=== PATIENT | female | born 2005 | race Hispanic/Latino ===

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

== ENCOUNTER 2024-07-29 21:18 | Emergency (ER) | payer OTHER ==
--- OUTSIDE RECORDS SUMMARY | 2024-07-29 21:23 | XMS REPORT | Continuity of Care Document ---
Author Name Unknown Address [address] 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 Name Role Phone RESHMA LATHAM Primary Care Physician Unav WOO Salter Attending Clinician Unavailable Latanya Russell CGC Attending Clinician Unavailable 2, Genetic Counselor Telemed Attending Clinician Unavailable MINNIE MONTERROSO Attending Clinician Unavailgriselda [facility]roso [facility] [phone] BARBARA PATTEN Attending Clinician Unavailable 1, [facility] Us Room Attending Clinician UnavailBarbara Ortez MD Attending Clinician [phone] Lab, Ang-Rmchp Attending Clinician Unavailable Woo Escobedo MD Attending Clinician Unavailable Yeison Reshma JENSEN Attending Clinician + RESHMA LATHAM Attending Clinician Unavail able Doctor Unassigned, Spangle Attending Clinician U NORMA Edwards Attending Clinician UnavailNORMA Samson Attending Clinician UnavailOSMEL Quesada Attending Clinician UnaLAINA Fields Attending Clinician Unavailab le Pob, [facility] Main Attending Clinician Unavailabl e Only, Adc Test Attending Clinician Unavailable 2, [facility] Attending Clinician Unavailable [email or web address] Attending Clinician Unavailable Marcella Woods Attending Clinician [phone] Provider, OB Admit Generic Admitting Clinician U jazzmineailable WOO ESCOBEDO Admitting Clinician Unavailable RESHMA LATHAM Admitting Clinician Unavail able Woo Escobedo MD Admitting Clinician [email or web address] Admitting Clinician Unavailable Payers Payer Name Policy Type Policy Number Effective Date Expirati on Date Source [employer] MEDICAID [id number] 2021 00:00:00 [employer] [id number] 2024 00:00:00 [facility]LY [facility] [id number] 2024 00:00:00 [place] [id number] 2024 00:00:00 2024 00:00:00 [facility] (MEDICAID [facility]) [id number] 2018 00:00:00 Problems Condition Name Condition Details Condition Category Status Onset Date Resolution Date Last Treatment Date Treating Clinician Comments Source Abnormal maternal glucose tolerance, antepartum Abnormal maternal glucose tolerance, antepartum Disease Active 4-03 00:00: 00 [facility] Cramping affecting , antepartum Cramping affecting , antepartum Disease Active 4-02 00:00: 00 [facility] Other general counseling and advice for contracept david management Other general counseling and advice for contracept david management Disease Active 2-23 00:00: 00 [facility] Pain pelvic Pain pelvic Disease Active 2-23 00:00: 00 [facility] Bacterial vaginosis Bacterial vaginosis Disease Active 4-08 00:00: 00 [facility] Missed Missed Disease Active 3-23 00:00: 00 Overview: Formattin g of this note might be different from the original. Added automatic ally from request for surgery [id number] [facility] History of miscarriag e, currently History of miscarriag e, currently Disease Active 3-23 00:00: 00 Overview: Formattin g of this note might be different from the original. Added automatic ally from request for surgery [id number] [facility] Obesity (BMI 30-39.9) Obesity (BMI 30-39.9) Disease Active 2- 00:00: 00 [facility] Obesity in Obesity in Disease Active 2- 00:00: 00 [facility] Supervisio n of high risk in first trimester Supervisio n of high risk in first trimester Disease Active 2- 00:00: 00 [facility] Obesity affecting Obesity affecting Disease Active 2- 00:00: 00 [facility] Allergies, Adverse Reactions, Alerts Allergy Name Allergy Type Status Severity Reaction(s) Onset Date Inactive Date Treating Clinician Comments Source NO KNOWN ALLERGIE S Drug Class Active [facility] Social History Social Habit Start Date Stop Date Quantity Comments Source ASSERTION 2024-01-01 00:00:00 [facility] Sexual orientation [facility] Alcoholic beverage intake 2024-03-18 00:00:00 2024-03-18 00:00:00 Ex-drinker (finding) [facility] Alcohol intake 2024-02-19 00:00:00 2024-02-19 00:00:00 Ex-drinker (finding) [facility] History of Social function 2024-01-22 00:00:00 2024-01-22 00:00:00 [facility] Exposure to SARS-CoV-2 (event) 2022-12-04 00:00:00 2022-12-14 13:54:00 Not sure [facility] Tobacco use and exposure 2022-12-14 00:00:00 2022-12-14 00:00:00 Smokeless tobacco non-user [facility] Sex assigned at 2003 00:00:00 2005 00:00:00 [facility] Smoking Status Start Date Stop Date Source Tobacco smoking consumption unknown [facility] Never smoked tobacco [facility] Medications Ordered Medication Name Filled Medication Name Start Date Stop Date Current Medication? Ordering Clinician Indication Dosage Frequency Signature (SIG) Comments Components Source PNV 67-iron ps-folate no.1-dha (VITAFOL ULTRA) 29 mg iron- 1 mg-200 mg Cap 04-03 00:00: 00 10-01 05:59 :00 No 1{capsu le} Take 1 capsule by mouth in the morning for 180 days. [facility] No known medications 01-27 10:37: 52 No [facility] vit 33-iron-fol ic-dha (SELECT-OB + DHA) 29 mg iron-1 mg -250 mg combo pack 01-26 00:00: 00 Yes [id number] 1{packe t} Take 1 Packet by mouth daily. [facility] vit 33-iron-fol ic-dha (SELECT-OB + DHA) 29 mg iron-1 mg -250 mg combo pack 01-26 00:00: 00 01-21 00:00 :00 No [id number] 1{packe t} Take 1 Packet by mouth daily. [facility] metroNIDAZO LE 500 mg tablet 01-26 00:00: 00 02-03 04:59 :00 No [id number] 500mg Take 1 tablet by mouth every 12 (twelve) hours for 7 days. Do not drink alcohol while taking this medication . [facility] ibuprofen (IBU) tablet 800 mg 01-13 17:00: 56 Yes 800mg 800 mg, Oral, PRN, 1 dose, Starting on Sun01/13/22 at 1200, Until Discontinu ed, Routine, Pain (scale 4-6), [facility] Recovery [facility] acetaminoph en (TYLENOL) tablet 325 mg 01-13 17:00: 56 Yes 325mg 325 mg, Oral, PRN, 1 dose, Starting on Sun01/13/22 at 1200, Until Discontinu ed, Routine, Pain (scale 1-3), [facility] Recovery [facility] oxyCODONE-a cetaminophe n (PERCOCET) 5-325 mg per tablet 1 tablet 01-13 17:00: 56 01-13 17:23 :00 No 1{tbl} 1 tablet, Oral, PRN, 1 dose, Starting on Sun01/13/22 at 1200, Until Sun01/13/22 at 1223, Routine, Pain (scale 7-10), [facility] Recovery [facility] ferric subsulfate (MONSEL'S) solution 01-13 16:40: 00 Yes PRN, Starting on Sun01/13/22 at 1140, Until Discontinu ed, Routine, Intra-op [facility] doxycycline hyclate (Vibramycin ) capsule 200 mg 01-13 16:00: 00 01-13 15:03 :00 No 200mg 200 mg, Oral, ONCE, 1 dose, On Sun01/13/22 at 1100, TOMI
Re ason for Anti-Infec tive: Surgical Prophylaxi s
Surgi ranulfo Prophylaxi s: DESIGN ENGINEERING INTERN
Duration of therapy: within 24 hours of surgery [facility] sodium chloride 0.9 % irrigation solution 01-13 15:46: 00 Yes PRN, Starting on Sun01/13/22 at 1046, Until Discontinu ed, Intra-op [facility] lactated ringers IV infusion 1,000 mL 01-13 14:45: 00 01-13 14:54 :00 No 1000mL at 42 mL/hr, 1,000 mL, IV Infusion, ONCE, 1 dose, On Sun01/13/22 at 0945, Routine, DSU Pre-op [facility] vit no.124/iron /folic ( VITAMIN ORAL) 01-13 11:58: 50 01-13 00:00 :00 No Take by mouth. [facility] ibuprofen 600 mg tablet 01-13 00:00: 00 01-21 00:00 :00 No [id number] 600mg Take 1 tablet by mouth every 6 (six) hours as needed for Pain (scale 1-3). [facility] vit no.124/iron /folic ( VITAMIN ORAL) 01-12 11:33: 28 Yes Take by mouth. [facility] vit no.124/iron /folic ( VITAMIN ORAL) 01-11 12:10: 19 Yes Take by mouth. [facility] NuvaRing 0.12 mg-0.015 mg/24 hr vaginal Insert 1 ring vaginally once for x 3 weeks. Remove on week 4. Repeat monthly. NuvaRing 0.12 mg-0.015 mg/24 hr vaginal Insert 1 ring vaginally once for x 3 weeks. Remove on week 4. Repeat monthly. No NuvaRing 0.12 mg-0.015 mg/24 hr vaginal Insert 1 ring vaginally once for x 3 weeks. Remove on week 4. Repeat monthly. [facility] Medical Immunizations Ordered Immunization Name Filled Immunization Name Date Status Comments Source SARS-COV-2 COVID-19 VACCINE - (MODERNA) Unknown Completed [facility] Meningococcal B, OMV Unknown Completed [facility] IPV Unknown Completed [facility] TDAP Unknown Completed [facility] Pediarix (dtap/hep B/ipv) Unknown Completed [facility] DTaP, Unspecified Formulation Unknown Completed [facility] HEPATITIS A Unknown Completed [facility] Hib-HbOC Unknown Completed [facility] HIB 4 Dose Schedule Unknown Completed [facility] HPV9 Unknown Completed [facility] Meningococcal Polysaccharide (groups A, C, Y and W-135) conjugate vaccine (MCV4P) Unknown Completed [facility] MMR Unknown Completed [facility] Pneumococcal 7 Conjugate, PCV7 (Prevnar7) Unknown Completed [facility] Varicella (varivax)(chicken pox) Unknown Completed [facility] SARS-COV-2 COVID-19 VACCINE - (MODERNA) Unknown Completed [facility] Pediarix (dtap/hep B/ipv) Unknown Completed [facility] DTaP, Unspecified Formulation Unknown Completed [facility] HEPATITIS A Unknown Completed [facility] Hib-HbOC Unknown Completed [facility] HIB 4 Dose Schedule Unknown Completed [facility] HPV9 Unknown Completed [facility] Meningococcal Polysaccharide (groups A, C, Y and W-135) conjugate vaccine (MCV4P) Unknown Completed [facility] Meningococcal B, OMV Unknown Completed [facility] MMR Unknown Completed [facility] Pneumococcal 7 Conjugate, PCV7 (Prevnar7) Unknown Completed [facility] IPV Unknown Completed [facility] TDAP Unknown Completed [facility] Varicella (varivax)(chicken pox) Unknown [facility] SARS-COV-2 COVID-19 VACCINE - (MODERNA) Unknown Completed [facility] Pediarix (dtap/hep B/ipv) Unknown Completed [facility] DTaP, Unspecified Formulation Unknown Completed [facility] HEPATITIS A Unknown Completed [facility] Hib-HbOC Unknown Completed [facility] HIB 4 Dose Schedule Unknown Completed [facility] HPV9 Unknown Completed [facility] Meningococcal Polysaccharide (groups A, C, Y and W-135) conjugate vaccine (MCV4P) Unknown Completed [facility] Meningococcal B, OMV Unknown Completed [facility] MMR Unknown Completed [facility] Pneumococcal 7 Conjugate, PCV7 (Prevnar7) Unknown Completed [facility] IPV Unknown Completed [facility] TDAP Unknown Completed [facility] Varicella (varivax)(chicken pox) Unknown [facility] SARS-COV-2 COVID-19 VACCINE - (MODERNA) Unknown Completed [facility] Pediarix (dtap/hep B/ipv) Unknown Completed [facility] DTaP, Unspecified Formulation Unknown Completed [facility] HEPATITIS A Unknown Completed [facility] Hib-HbOC Unknown Completed [facility] HIB 4 Dose Schedule Unknown Completed [facility] HPV9 Unknown Completed [facility] Meningococcal Polysaccharide (groups A, C, Y and W-135) conjugate vaccine (MCV4P) Unknown Completed [facility] Meningococcal B, OMV Unknown Completed [facility] MMR Unknown Completed [facility] Pneumococcal 7 Conjugate, PCV7 (Prevnar7) Unknown Completed [facility] IPV Unknown Completed [facility] TDAP Unknown Completed [facility] Varicella (varivax)(chicken pox) Unknown [facility] SARS-COV-2 COVID-19 VACCINE - (MODERNA) Unknown Completed [facility] Pediarix (dtap/hep B/ipv) Unknown Completed [facility] DTaP, Unspecified Formulation Unknown Completed [facility]ITIS A [facility] HIB 4 Dose Schedule Unknown Completed [facility] HPV9 Unknown Completed [facility] Meningococcal Polysaccharide (groups A, C, Y and W-135) conjugate vaccine (MCV4P) Unknown Completed [facility] Meningococcal B, OMV Unknown Completed [facility] MMR Unknown Completed [facility] Pneumococcal 7 Conjugate, PCV7 (Prevnar7) Unknown Completed [facility] IPV Unknown Completed [facility] TDAP Unknown Completed [facility] Varicella (varivax)(chicken pox) Unknown Completed [facility] SARS-COV-2 COVID-19 VACCINE - (MODERNA) Unknown Completed [facility] Pediarix (dtap/hep B/ipv) Unknown Completed [facility] DTaP, Unspecified Formulation Unknown Completed [facility] HEPATITIS A Unknown Completed [facility] Hib-HbOC Unknown Completed [facility] HIB 4 Dose Schedule Unknown Completed [facility] HPV9 Unknown Completed [facility] Meningococcal Polysaccharide (groups A, C, Y and W-135) conjugate vaccine (MCV4P) Unknown Completed [facility] Meningococcal B, OMV Unknown Completed [facility] MMR Unknown Completed [facility] Pneumococcal 7 Conjugate, PCV7 (Prevnar7) Unknown Completed [facility] IPV Unknown Completed [facility] TDAP Unknown Completed [facility] Varicella (varivax)(chicken pox) Unknown Completed [facility] SARS-COV-2 COVID-19 VACCINE - (MODERNA) Unknown Completed [facility] Pediarix (dtap/hep B/ipv) Unknown Completed [facility] DTaP, Unspecified Formulation Unknown Completed [facility] HEPATITIS A Unknown Completed [facility] Hib-HbOC Unknown Completed [facility] HIB 4 Dose Schedule Unknown Completed [facility] HPV9 Unknown Completed [facility] Meningococcal Polysaccharide (groups A, C, Y and W-135) conjugate vaccine (MCV4P) Unknown Completed [facility] Meningococcal B, OMV Unknown Completed [facility] MMR Unknown Completed [facility] Pneumococcal 7 Conjugate, PCV7 (Prevnar7) Unknown Completed [facility] IPV Unknown Completed [facility] TDAP Unknown Completed [facility] Varicella (varivax)(chicken pox) Unknown [facility] SARS-COV-2 COVID-19 VACCINE - (MODERNA) Unknown Completed [facility] Pediarix (dtap/hep B/ipv) Unknown Completed [facility] DTaP, Unspecified Formulation Unknown Completed [facility] HEPATITIS A Unknown Completed [facility] Hib-HbOC Unknown Completed [facility] HIB 4 Dose Schedule Unknown Completed [facility] HPV9 Unknown Completed [facility] Meningococcal Polysaccharide (groups A, C, Y and W-135) conjugate vaccine (MCV4P) Unknown Completed [facility] Meningococcal B, OMV Unknown Completed [facility] MMR Unknown Completed [facility] Pneumococcal 7 Conjugate, PCV7 (Prevnar7) Unknown Completed [facility] IPV Unknown Completed [facility] TDAP Unknown Completed [facility] Varicella (varivax)(chicken pox) Unknown Completed [facility] SARS-COV-2 COVID-19 VACCINE - (MODERNA) Unknown Completed [facility] Pediarix (dtap/hep B/ipv) Unknown Completed [facility] DTaP, Unspecified Formulation Unknown Completed [facility] HEPATITIS A Unknown Completed [facility] Hib-HbOC Unknown Completed [facility] HIB 4 Dose Schedule Unknown Completed [facility] HPV9 Unknown Completed [facility] Meningococcal Polysaccharide (groups A, C, Y and W-135) conjugate vaccine (MCV4P) Unknown Completed [facility] Meningococcal B, OMV Unknown Completed [facility] MMR Unknown Completed [facility] Pneumococcal 7 Conjugate, PCV7 (Prevnar7) Unknown Completed [facility] IPV Unknown Completed [facility] TDAP Unknown Completed [facility] Varicella (varivax)(chicken pox) Unknown Completed [facility] SARS-COV-2 COVID-19 VACCINE - (MODERNA) Unknown Completed [facility] Meningococcal B, OMV Unknown Completed [facility] IPV Unknown Completed [facility] TDAP Unknown Completed [facility] Pediarix (dtap/hep B/ipv) Unknown Completed [facility] DTaP, Unspecified Formulation Unknown Completed [facility] HEPATITIS A Unknown Completed [facility] Hib-HbOC Unknown Completed [facility] HIB 4 Dose Schedule Unknown Completed [facility] HPV9 Unknown Completed [facility] Meningococcal Polysaccharide (groups A, C, Y and W-135) conjugate vaccine (MCV4P) Unknown Completed [facility] MMR Unknown Completed [facility] Pneumococcal 7 Conjugate, PCV7 (Prevnar7) Unknown Completed [facility] Varicella (varivax)(chicken pox) Unknown Completed [facility] SARS-COV-2 COVID-19 VACCINE - (MODERNA) Unknown Completed [facility] Pediarix (dtap/hep B/ipv) Unknown Completed [facility] DTaP, Unspecified Formulation Unknown Completed [facility] HEPATITIS A Unknown Completed [facility] Hib-HbOC Unknown Completed [facility] HIB 4 Dose Schedule Unknown Completed [facility] HPV9 Unknown Completed [facility] Meningococcal Polysaccharide (groups A, C, Y and W-135) conjugate vaccine (MCV4P) Unknown Completed [facility] Meningococcal B, OMV Unknown Completed [facility] MMR Unknown Completed [facility] Pneumococcal 7 Conjugate, PCV7 (Prevnar7) Unknown Completed [facility] IPV Unknown Completed [facility] TDAP Unknown Completed [facility] Varicella (varivax)(chicken pox) Unknown Completed [facility] Vital Signs Vital Name Observation Time Observation Value Comments S ource Systolic blood pressure 2024-03-18 15:47:00 131 mm[Hg] [facility] Diastolic blood pressure 2024-03-18 15:47:00 80 mm[Hg] [facility] Heart rate 2024-03-18 15:47:00 88 /min [facility] Body temperature 2024-03-18 15:47:00 36.39 Leona [facility] Respiratory rate 2024-03-18 15:47:00 18 /min [facility] Body height 2024-03-18 15:47:00 160 cm [facility] Body weight 2024-03-18 15:47:[address] [facility] BMI 2024-03-18 15:47:00 35.18 kg/m2 [facility] Systolic blood pressure 2024-02-19 16:11:00 129 mm[Hg] [place] [facility] Diastolic blood pressure 2024-02-19 16:11:00 74 mm[Hg] [facility] Heart rate 2024-02-19 16:11:00 79 /min [facility] Body temperature 2024-02-19 16:11:00 36.11 Leona [facility] Respiratory rate 2024-02-19 16:11:00 18 /min [facility] Body height 2024-02-19 16:11:[address] [facility] Body weight 2024-02-19 16:11:[address] [facility] BMI 2024-02-19 16:11:00 34.65 kg/m2 [facility] Systolic blood pressure 2024-01-22 18:13:00 132 mm[Hg] [facility] Diastolic blood pressure 2024-01-22 18:13:00 79 mm[Hg] [facility] Heart rate 2024-01-22 18:13:00 80 /min [facility] Body temperature 2024-01-22 18:13:00 36.67 Leona [facility] Respiratory rate 2024-01-22 18:13:00 18 /min [facility] Body height 2024-01-22 18:13:[address] [facility] Body weight 2024-01-22 18:13:[address] [facility] BMI 2024-01-22 18:13:00 34.90 kg/m2 [facility] Systolic blood pressure 2022-12-14 19:55:00 131 mm[Hg] [facility] Diastolic blood pressure 2022-12-14 19:55:00 68 mm[Hg] [facility] Heart rate 2022-12-14 19:55:00 77 /min [facility] Body temperature 2022-12-14 19:55:00 36.39 Leona [facility] Respiratory rate 2022-12-14 19:55:00 18 /min [facility] Body height 2022-12-14 19:55:[address] [facility] Body weight 2022-12-14 19:55:[address] [facility] BMI 2022-12-14 19:55:00 34.65 kg/m2 [facility] Systolic blood pressure 2022-01-26 18:15:00 113 mm[Hg] [facility] Diastolic blood pressure 2022-01-26 18:15:00 77 mm[Hg] [facility] Heart rate 2022-01-26 18:15:00 80 /min [facility] Body temperature 2022-01-26 18:15:00 36.67 Leona [facility] Respiratory rate 2022-01-26 18:15:00 18 /min [facility] Body height 2022-01-26 18:15:[address] [facility] Body weight 2022-01-26 18:15:[address] [facility] BMI 2022-01-26 18:15:00 33.83 kg/m2 [facility] Body mass index (BMI) [Percentile] Per age and sex 2022-01-26 18:15:00 97.14 % [facility] Systolic blood pressure 2022-01-13 17:43:00 109 mm[Hg] [facility] Diastolic blood pressure 2022-01-13 17:43:00 66 mm[Hg] [facility] Heart rate 2022-01-13 17:43:00 79 /min [facility] Body temperature 2022-01-13 17:43:00 36.56 Leona [facility] Respiratory rate 2022-01-13 17:43:00 17 /min [facility] Oxygen saturation in Arterial blood by Pulse oximetry 2022-01-13 17:43:00 96 /min [facility] Body height 2022-01-11 14:37:[address] [facility] Body weight 2022-01-11 14:37:[address] [facility] BMI 2022-01-11 14:37:00 33.44 kg/m2 [facility] Body mass index (BMI) [Percentile] Per age and sex 2022-01-11 14:37:00 96.97 % [facility] Systolic blood pressure 2022-01-13 17:43:00 109 mm[Hg] [facility] Diastolic blood pressure 2022-01-13 17:43:00 66 mm[Hg] [facility] Heart rate 2022-01-13 17:43:00 79 /min [facility] Body temperature 2022-01-13 17:43:00 36.56 Leona [facility] Respiratory rate 2022-01-13 17:43:00 17 /min [facility] Oxygen saturation in Arterial blood by Pulse oximetry 2022-01-13 17:43:00 96 /min [facility] Body height 2022-01-11 14:37:[address] [facility] Body weight 2022-01-11 14:37:[address] [facility] BMI 2022-01-11 14:37:00 33.44 kg/m2 [facility] Body mass index (BMI) [Percentile] Per age and sex 2022-01-11 14:37:00 96.97 % [facility] Systolic blood pressure 2022-01-12 16:32:00 109 mm[Hg] [facility] Diastolic blood pressure 2022-01-12 16:32:00 70 mm[Hg] [facility] Heart rate 2022-01-12 16:32:00 85 /min [facility] Body temperature 2022-01-12 16:32:00 36.78 Leona [facility] Body height 2022-01-12 16:32:[address] [facility] Body weight 2022-01-12 16:32:[address] [facility] BMI 2022-01-12 16:32:00 33.71 kg/m2 [facility] Body mass index (BMI) [Percentile] Per age and sex 2022-01-12 16:32:00 97.10 % [facility] BP Diastolic 2021-02-01 00:00:00 68 mm[Hg] [facility] Height 2021-02-01 00:00:00 63 [in_i] [facility] BMI (Body Mass Index) 2021-02-01 00:00:00 36.3 kg/m2 [facility] BP Systolic 2021-02-01 00:00:00 105 mm[Hg] [facility] Body Weight 2021-02-01 00:00:00 205 [lb_av] [facility] Procedures Procedure Date / Time Performed Performing Clinician Source POCT URINALYSIS 2024-03-18 15:48:00 Minnie Monterroso [facility] FIRST TRIMESTER ULTRASOUND 2024-03-03 16:46:46 Minnie Monterroso [facility] POCT URINALYSIS 2024-02-19 16:15:00 Minnie Monterroso [facility] POCT TEST 2024-01-22 18:16:00 Joo Latham [facility] POCT URINALYSIS W/O SPECIFIC GRAVITY 2024-01-22 18:16:00 Reshma Latham [facility] US PELVIS COMPLETE WITH TRANSVAGINAL 2022-12-21 15:52:55 Reshma Latham [facility] ASSIGNMENT OF BENEFITS 2022-12-21 15:07:19 Docto r Unassigned, [place] [facility] ASSIGNMENT OF BENEFITS 2022-12-14 19:33:08 Docto r Unassigned, [place] [facility] GC & CHLAMYDIA AMPLIFIED ASSAY 2022-12-14 08:50:00 Reshma Latham [facility] HIV 1/2 AG-AB WITH REFLEX 2022-12-14 08:50:00 Reshma Latham [facility] SYPHILIS IGG/IGM 2022-12-14 08:50:00 Jeremías Latham [facility] REFERRAL- REQUEST/RESPONSE 2022-12-04 06:01:00 Doctor Unassigned, [place] [facility] EXTERNAL PROVIDER RECORDS 2022-01-24 05:01:00 Doctor Unassigned, [place] [facility] US PELVIS LIMITED 2022-01-13 16:53:05 Woo Escobedo [facility] DILATATION AND EVACUATION/CURETTAGE 2022-01-13 15:09:00 Woo Escobedo [facility] HB ABO GROUPING 2022-01-13 14:52:00 Woo Escobedo [facility] HB ABO GROUPING 2022-01-13 14:52:00 Woo Escobedo [facility] POCT TEST 2022-01-13 14:36:00 Jordy Mcfarland [facility] POCT TEST 2022-01-13 14:36:00 Jordy Mcfarland [facility] DAY SURGERY - ADC 2022-01-13 05:01:00 Doctor Tamika ssigned, [place] [facility] DISCLOSURE AND CONSENT, MEDICAL AND SURGICAL PROCEDURES 2022-01-12 05:01:00 Doctor Unassigned, [place] [facility] RADIOLOGY DOCUMENTATION 2022-01-12 05:01:00 Doct or Unassigned, [place] [facility] DISCLOSURE AND CONSENT, MEDICAL AND SURGICAL PROCEDURES 2022-01-12 05:01:00 Doctor Unassigned, [place] [facility] RADIOLOGY DOCUMENTATION 2022-01-12 05:01:00 Doct or Unassigned, [place] [facility] CBC WITH DIFF 2022-01-11 16:27:00 Woo Escobedo [facility] HB ABO GROUPING 2022-01-11 16:27:00 Woo Escobedo [facility] NOTICE OF PRIVACY PRACTICES 2022-01-11 16:11:55 Doctor Unassigned, [place] [facility] NOTICE OF PRIVACY PRACTICES 2022-01-11 16:11:55 Doctor Unassigned, [place] [facility] CONSENT/REFUSAL FOR DIAGNOSIS AND TREATMENT 2022-01-11 16:11:41 Doctor Unassigned, [place] [facility] CONSENT/REFUSAL FOR DIAGNOSIS AND TREATMENT 2022-01-11 16:11:41 Doctor Unassigned, [place] [facility] ASSIGNMENT OF BENEFITS 2022-01-11 16:11:26 Docto r Unassigned, [place] [facility] ASSIGNMENT OF BENEFITS 2022-01-11 16:11:26 Docto r Unassigned, [place] [facility] SCANNED LAB RESULTS 2021-12-14 06:01:00 Doctor Naresh reed, [place] [facility] Encounters Start Date/Time End Date/Time Encounter Type Admission Type Attending Clinicians Care Facility Care Department Encounter ID Source 2024-09-23 11:58:00 Inpatient EL [facility] LD [id number] [facility] 2022-01-11 10:23:03 Outpatient WOO ARMENTA [facility] LOAN FUNDER [id number] [facility] 2024-05-29 15:00:00 2024-05-29 15:26:58 Education Latanya Russell 2, Genetic Counselor Telemed [facility] [address] [facility] 1.2.840.114 350.1.13.58 9.2.7.2.686 [id number] [facility] 2024-05-07 14:00:00 2024-05-07 14:00:00 Outpatient P [facility] [id number] [facility] 2024-04-15 11:00:00 2024-04-15 11:00:00 Outpatient MINNIE HERNANDEZ [facility] [id number] [facility] 2024-04-03 00:00:00 2024-04-03 08:41:27 Patient Secure MsMinnie Dobbins [facility] DESIGN ENGINEERING INTERN [employer] [facility] 1.2.840.114 350.1.13.10 4.2.7.2.686 [id number] [facility] 2024-04-01 10:00:00 2024-04-01 10:00:00 Outpatient R [facility] [id number] [facility] 2024-03-18 10:45:00 2024-03-18 11:01:10 Outpatient MINNIE HERNANDEZ [facility] [id number] [facility] 2024-03-18 10:45:00 2024-03-18 11:01:10 Routine Visit Minnie Monterroso [facility] [employer] MATERNAL & CHILD [facility] 1.2.840.114 350.1.13.10 4.2.7.2.686 [id number] 107 [id number] [facility] 2024-01-31 00:00:00 2024-03-08 18:11:54 Patient Secure M[facility] 1.2.840.114 350.1.13.10 4.2.7.2.686 [id number] [facility] 2024-03-04 00:00:00 2024-03-04 06:43:38 Case Management Minnie Monterroso [facility] DESIGN [employer]INE[employer] INTER[employer] [facility] CHILD [facility] 1.2.840.114 350.1.13.10 4.2.7.2.686 [id number] [facility] 2024-03-03 11:30:00 2024-03-03 12:00:58 [facility] [id number] 2024-03-03 11:30:00 2024-03-03 12:00:58 Travel Sales Consultant Visit 1, [facility] Barbara Patten [facility] 1.2840.114 350.1.13.10 4.2.7.2.686 [id number] [facility] 2024-02-22 00:00:00 2024-02-22 00:00:00 Case Management [facility] CHILD [facility] 1.2.840.114 350.1.13.10 4.2.7.2.686 [id number] [facility] 2024-02-20 00:00:00 2024-02-20 00:00:00 Telephone Minnie Monterroso [facility] DESIGN ENGINEERING INTERN [facility] 1.2.840.114 350.1.13.10 4.2.7.2.686 [id number] [facility] 2024-02-19 11:00:00 2024-02-19 11:36:13 Outpatient R MINNIE MONTERROSO [facility] [id number] [facility] 2024-02-19 11:00:00 2024-02-19 11:36:13 Routine Visit Minnie Monterroso [facility] DESIGN ENGINEERING INTERN [facility] CHILD [facility] 1.2.840.114 350.1.13.10 4.2.7.2.686 [id number] [facility] 2024-01-25 07:45:00 2024-01-25 10:58:15 Outpatient R MINNIE MONTERROSO [facility] [id number] [facility] 2024-01-25 07:45:00 2024-01-25 10:58:15 Travel Sales Consultant Visit Lab, [facility] DESIGN ENGINE[facility]ING INTER[facility] CHILD [facility] 1.2.840.114 350.1.13.10 4.2.7.2.686 [id number] [facility] 2024-01-23 00:00:00 2024-01-23 00:00:00 Telephone Minnie Monterroso [facility] DESIGN ENGINEERING INTERN [facility] 1.2.840.114 350.1.13.10 4.2.7.2.686 [id number] [facility] 2024-01-22 13:00:00 2024-01-22 13:47:19 [facility] [id number] [facility] 2024-01-22 13:00:00 2024-01-22 13:47:19 Initial Visit Minnie Monterroso [facility] DESIGN ENGINEERING INTER[employer] MATERNAL & CHILD [facility] 1.2.840.114 350.1.13.10 4.2.7.2.686 [id number] [facility] 2023-01-21 00:00:00 2023-01-21 00:00:00 Refill Woo Escobedo [facility] 1.2840.114 350.1.13.10 4.2.7.2.686 [id number] [facility] 2022-12-26 00:00:00 2022-12-26 00:00:00 Telephone Reshma Latham [facility] DESIGN ENGINEERING [employer] MATERNAL & CHILD [facility] 1.840.114 350.1.13.10 4.2.7.2.686 [id number] [facility] 2022-12-22 00:00:00 2022-12-22 00:00:00 Refill Woo Escobedo [facility] 1.0.114 350.1.13.10 4.2.7.2.686 [id number] [facility] 2022-12-21 09:09:12 2022-12-21 23:59:00 Outpatient R RESHMA LATHAM [facility] [id number] [facility] 2022-12-21 09:00:00 2022-12-21 23:59:00 Hospital Encounter Reshma Latham [facility] 1.0.114 350.1.13.10 4.2.7.2.686 [id number] [facility] 2022-12-21 00:00:00 2022-12-21 00:00:00 Orders Only Doctor Unassigned, [place] [facility] 1.2840.114 350.1.13.10 4.2.7.2.686 [id number] [facility] 2022-12-21 00:00:00 2022-12-21 00:00:00 Woo Diego [facility] 1.840.114 350.1.13.10 4.2.7.2.686 [id number] [facility] 2022-12-20 09:08:46 2022-12-20 23:59:00 Hospital Encounter Reshma Latham [facility] 1..114 350.1.13.10 4.2.7.2.686 [id number] [facility] 2022-12-20 00:00:00 2022-12-20 23:59:00 Outpatient R RESHMA LATHAM [facility] [id number] [facility] 2022-12-15 11:30:00 2022-12-15 11:30:00 Outpatient R NORMA GONZALES CHERYAL [facility] [id number] [facility] 2022-12-14 13:30:00 2022-12-14 14:53:36 Outpatient R RESHMA LATHAM [facility] [id number] [facility] 2022-12-14 13:30:00 2022-12-14 14:53:36 Office Visit Reshma Latham [facility] DESIGN ENGINEERING INTERN [employer] [facility] 1.0.114 350.1.13.10 4.2.7.2.686 [id number] [facility] 2022-12-14 00:00:00 2022-12-14 00:00:00 Orders Only Doctor Unassigned, [place] [facility] 1.840.114 350.1.13.10 4.2.7.2.686 [id number] [facility] 2022-12-08 15:00:00 2022-12-08 15:00:00 Outpatient R OSMEL ROJAS [facility] [id number] [facility] 2022-12-04 00:00:00 2022-12-04 00:00:00 Orders Only Doctor Unassigned, [place] [facility] 1.2840.114 350.1.13.10 4.2.7.2.686 [id number] [facility] 2022-01-26 13:00:00 2022-01-26 14:36:54 Outpatient R WOO ESCOBEDO [facility] [id number] [facility] 2022-01-26 13:00:00 2022-01-26 14:36:54 Routine Visit Woo Escobedo [facility] 1.840.114 350.1.13.10 4.2.7.2.686 [id number] [facility] 2022-01-26 13:00:00 2022-01-26 13:00:00 Outpatient R WOO ESCOBEDO [facility] [id number] [facility] 2022-01-24 00:00:00 2022-01-24 00:00:00 Orders Only Doctor Unassigned, [place] [facility] 1.840114 350.1.13.10 4.2.7.2.686 [id number] [facility] 2022-01-13 10:50:00 2022-01-13 12:59:00 Surgery Woo Escobedo [facility] 1.84.114 350.1.13.10 4.2.7.2.686 [id number] [facility] 2022-01-13 09:32:00 2022-01-13 12:56:00 Outpatient R WOO ESCOBEDO [facility] LOAN FUNDER [id number] [facility] 2022-01-13 09:32:00 2022-01-13 12:56:00 Hospital Encounter Woo Escobedo [facility] 1.0.114 350.1.13.10 4.2.7.2.686 [id number] [facility] 2022-01-12 11:15:00 2022-01-12 12:26:59 Outpatient R WOO ESCOBEDO [facility] [id number] [facility] 2022-01-12 11:15:00 2022-01-12 12:26:59 Routine Visit Woo Escobedo [facility] 1.0.114 350.1.13.10 4.2.7.2.686 [id number] [facility] 2022-01-12 11:15:00 2022-01-12 11:15:00 Outpatient R WOO ESCOBEDO [facility] [id number] [facility] 2022-01-12 00:00:00 2022-01-12 00:00:00 Telephone Woo Escobedo [facility] 1.0.114 350.1.13.10 4.2.7.2.686 [id number] [facility] 2022-01-11 11:45:00 2022-01-11 12:00:00 Travel Sales Consultant Visit Pob, Adc Lab Main Woo Escobedo [facility] 1.0.114 350.1.13.10 4.2.7.2.686 [id number] [facility] 2022-01-11 10:30:00 2022-01-11 10:45:00 Laboratory Only Only, Adc Test Woo Escobedo [facility] 1.2840.114 350.1.13.10 4.2.7.2.686 [id number] [facility] 2022-01-11 10:30:00 2022-01-11 10:30:00 Outpatient R WOO ESCOBEDO [facility] [id number] [facility] 2022-01-11 10:30:00 2022-01-11 10:30:00 Outpatient R WOO ESCOBEDO [facility] [id number] [facility] 2022-01-11 00:00:00 2022-01-11 00:00:00 Telephone Woo Escobedo [facility] 1.840.114 350.1.13.10 4.2.7.2.686 [id number] [facility] 2022-01-10 13:00:00 2022-01-10 13:55:37 Outpatient R WOO ESCOBEDO [facility] [id number] [facility] 2022-01-10 13:00:00 2022-01-10 13:55:37 Routine Visit Woo Escobedo [facility] 1.840.114 350.1.13.10 4.2.7.2.686 [id number] [facility] 2022-01-10 13:00:00 2022-01-10 13:00:00 Outpatient R WOO ESCOBEDO [facility] [id number] [facility] 2022-01-10 00:00:00 2022-01-10 00:00:00 Prep For Surgery Woo Escobedo [facility] 1.840.114 350.1.13.10 4.2.7.2.686 [id number] [facility] 2022-01-09 00:00:00 2022-01-09 00:00:00 Patient Secure Msg Gregg Woo [facility] 1.840.114 350.1.13.10 4.2.7.2.686 [id number] [facility] 2022-01-04 00:00:00 2022-01-04 00:00:00 Telephone Woo Escobedo [facility] 1.2.840.114 350.1.13.10 4.2.7.2.686 [id number] [facility] 2021-12-22 00:00:00 2021-12-22 00:00:00 Orders Only Doctor Unassigned, [place] [facility] 1.2.840.114 350.1.13.10 4.2.7.2.686 [id number] [facility] 2021-12-19 00:00:00 2021-12-19 00:00:00 Patient Secure Msg Doctor Unassigned, [place] [facility] 1.2.840.114 350.1.13.10 4.2.7.2.686 [id number] [facility] 2021-12-19 00:00:00 2021-12-19 00:00:00 Patient Secure Msg Gregg [facility] 1.2.840.114 350.1.13.10 4.2.7.2.686 [id number] [facility] 2021-12-14 00:00:00 2021-12-14 00:00:00 Orders Only Doctor Unassigned, [place] [facility] 1.2.840.114 350.1.13.10 4.2.7.2.686 [id number] [facility] 2021-12-13 11:15:00 2021-12-13 12:07:39 Outpatient R WOO ESCOBEDO [facility] [id number] [facility] 2021-12-13 11:15:00 2021-12-13 12:07:39 Routine Visit Woo Escobedo [facility] 1.2.840.114 350.1.13.10 4.2.7.2.686 [id number] [facility] 2021-12-13 08:15:00 2021-12-13 08:30:00 Travel Sales Consultant Visit 2, Adc Lab Woo Escobedo [facility] 1.2.840.114 350.1.13.10 4.2.7.2.686 [id number] [facility] 2021-11-23 00:00:00 2021-11-23 00:00:00 Telephone Woo Escobedo [facility] 1.2.840.114 350.1.13.10 4.2.7.2.686 [id number] [facility] 2021-11-22 09:30:00 2021-11-22 10:58:36 Initial Visit Woo Escobedo [facility] 1.2.840.114 350.1.13.10 4.2.7.2.686 [id number] [facility] 2021-11-22 09:30:00 2021-11-22 10:58:36 Outpatient R WOO ESCOBEDO [facility] [id number] [facility] 2021-11-22 00:00:00 2021-11-22 00:00:00 Letter (Out) Doctor Unassigned, [place] [facility] 1.0.114 350.1.13.10 4.2.7.2.686 [id number] [facility] 2021-11-22 00:00:00 2021-11-22 00:00:00 Orders Only Doctor Unassigned, [place] [facility] 1.20.114 350.1.13.10 4.2.7.2.686 [id number] [facility] 2021-02-11 01:55:00 2021-02-11 01:55:00 Outpatient GC_LMG_Comp ton_B [facility] [id number] [facility] 2021-02-01:15:00 2021-02-01 01:15:00 Outpatient GC_LMG_Comp ton_B [facility] [id number] [facility] 2021-02-01 00:00:00 2021-02-01 00:00:00 Outpatient Marcella Woods [facility] [id number] 2021-02-01 00:00:00 2021-02-01 00:00:00 Marcella Woods, [facility]-: [address] [place] [address] , Ph. [facility] - GC_LMG_[place] Office* [id number] [facility] Medical Results Test Description Test Time Test Comments Results Result Co mments Source [facility] URINALYSIS W SPECIFIC [id number] 15:48:00* Test Item Value Reference Range Interpretation Comme nts POCT U SP GRAV (test code = 3255) . 1.005-1.025 POCT PH U (test code = 3254) 8 mg/dl 5-8 POCT U LEUK EST (test code = 3263) neg Negative - Negative POCT U NIT (test code = 3262) neg Negative - Negati ve POCT U PROT (test code = 3259) trace Negative - Negat david POCT U GLU (test code = 3256) neg Negative - Negati ve POCT U KETONE (test code = 3258) neg Negative - Neg ative POCT U UROBILI (test code = 3260) . 0.2-1 POCT U BILI (test code = 3261) . Negative - Negat david POCT U BLD (test code = 3257) neg Negative - Negati ve POCT U COLOR (test code = 3266) POCT U APPEAR (test code = 3267) [facility] SPECIFIC [id number] 16:16:00* Test Item Value Reference Range Interpretation Comme nts POCT U SP GRAV (test code = 3255) . 1.005-1.025 POCT PH U (test code = 3254) 9 mg/dl 5-8 A POCT U LEUK EST (test code = 3263) 1+ Negative - Negative POCT U NIT (test code = 3262) neg Negative - Negati ve POCT U PROT (test code = 3259) trace Negative - Negat david POCT U GLU (test code = 3256) neg Negative - Negati ve POCT U KETONE (test code = 3258) neg Negative - Neg ative POCT U UROBILI (test code = 3260) . 0.2-1 POCT U BILI (test code = 3261) . Negative - Negat david POCT U BLD (test code = 3257) neg Negative - Negati ve POCT U COLOR (test code = 3266) . POCT U APPEAR (test code = 3267) . Lab Interpretation (test cod e = [id number]) Abnormal [facility] Urinalysis w/o Specific [id number] 18:16:00* Test Item Value Reference Range Interpretation Comme nts POCT PH U (test code = 3254) 7 mg/dl 5-8 POCT U LEUK EST (test code = 3263) trace Negative - Negative POCT U NIT (test code = 3262) neg Negative - Negati ve POCT U PROT (test code = 3259) trace Negative - Negat david POCT U GLU (test code = 3256) neg Negative - Negati ve POCT U KETONE (test code = 3258) neg Negative - Neg ative POCT U BLD (test code = 3257) neg Negative - Negati ve [facility] [id number] 18:16:00* Test Item Value Reference Range Interpretation Comme nts POCT PREG (test code = 1605) Positive On board controls acceptable with C Line (test code = 3574) Yes POCT PREG LOT # (test code = 3572) POCT PREG TEST DATE ( test code = 3576) [facility] Urinalysis w/o Specific [id number] 18:16:00* Test Item Value Reference Range Interpretation Comme nts POCT PH U (test code = 3254) 7 mg/dl 5-8 POCT U LEUK EST (test code = 3263) trace Negative - Negative POCT U NIT (test code = 3262) neg Negative - Negati ve POCT U PROT (test code = 3259) trace Negative - Negat david POCT U GLU (test code = 3256) neg Negative - Negati ve POCT U KETONE (test code = 3258) neg Negative - Neg ative POCT U BLD (test code = 3257) neg Negative - Negati ve [facility] [id number]:16:00* Test Item Value Reference Range Interpretation Comme nts POCT PREG (test code = 1605) Positive On board controls acceptable with C Line (test code = 3574) Yes POCT PREG LOT # (test code = 3575) POCT PREG TEST DATE ( test code = 3576) [id number] 15:19:45* Test Item Value Reference Range Interpretation Comme nts Syphilis IgG/IgM (test code = 51981-8) Non-reactive Non-reactive VERONICA (test code = VERONICA) Non-reactive - No serologic evidence of T. pallidum infection. Cannot exclude incubating or early syphilis. Submit a second specimen in 2-4 weeks if syphilis is clinically suspected. Equivocal - Further testing to follow. Reactive - Further testing to follow. Lab Interpretation (test code = 41742-0) Normal The [facility] [id number] 15:19:45* Test Item Value Reference Range Interpretation Comme nts Syphilis IgG/IgM (test code = 40336-4) Non-reactive Non-reactive VERONICA (test code = VERONICA) Non-reactive - No serologic evidence of T. pallidum infection. Cannot exclude incubating or early syphilis. Submit a second specimen in 2-4 weeks if syphilis is clinically suspected. Equivocal - Further testing to follow. Reactive - Further testing to follow. Lab Interpretation (test code = 22087-7) Normal [facility]-AB WITH [id number] 05:56:17* Test Item Value Reference Range Interpretation Comme nts HIV Semi-quantitative (test code = 33724-3) 0.06 Negative VERONICA (test code = VERONICA) Non-reactive for HIV-1 antigen and HIV-1/HIV-2 antibodies. ?No laboratory evidence of HIV infection. ?Repeat in 2-4 weeks if acute HIV infection is suspected. [facility] AG-AB WITH [id number] 05:56:17* Test Item Value Reference Range Interpretation Comme nts HIV Semi-quantitative (test code = 60029-7) 0.06 Negative VERONICA (test code = VERONICA) Non-reactive for HIV-1 antigen and HIV-1/HIV-2 antibodies. ?No laboratory evidence of HIV infection. ?Repeat in 2-4 weeks if acute HIV infection is suspected. [facility] - This is a pre-surgical type and screen. ONCE [id number] 15:46:07* Test Item Value Reference Range Interpretation Comme nts ABO & RH (test code = 20) O Positive Performed at [facility] Laboratory [facility] Blood [address] Free: [phone] No. [id number] IAT (test code = 1185) Negative Performed at [facility] Blood [place] [address]Toll Free: [phone] No. [id number] [facility] - This is a pre-surgical type and screen. ONCE [id number] 15:46:07* Test Item Value Reference Range Interpretation Comme nts ABO & RH (test code = 20) O Positive Performed at [facility] Blood [place] [address]Toll Free: [phone] No. [id number] IAT (test code = 1185) Negative Performed at [facility] Laboratory [facility] Blood [place] [address]Toll Free: [phone] No. [id number] [facility] [id number] 14:36:00* Test Item Value Reference Range Interpretation Comme nts POCT PREG (test code = 1605) Positive On board controls acceptable with C Line (test code = 3574) Yes POCT PREG LOT # (test code = 3575) [id number] POCT PREG TEST DATE ( test code = 3576) 2022-12-19 [facility] [id number] 14:36:00* Test Item Value Reference Range Interpretation Comme nts POCT PREG (test code = 1605) Positive On board controls acceptable with C Line (test code = 3574) Yes POCT PREG LOT # (test code = 3575) [id number] POCT PREG TEST DATE ( test code = 3576) 2022-12-19 [facility] -2022-01-11 21:13:44* Test Item Value Reference Range Interpretation Comme nts ABO & RH (test code = 20) O POSITIVE Performed at [facility] Laboratory [facility] Blood [place] [address]Toll Free: [phone] No. [id number] IAT (test code = 1185) Negative Performed at [facility] Laboratory [facility] Blood [place] [address]Toll Free: [phone] No. [id number] [facility] WITH [id number] 16:37:14* Test Item Value Reference Range Interpretation Comme nts WBC (test code = 6690-2) See_Comment [Automated messa ge] The system which generated this result transmitted reference range: 4.50 - 13.50 10*3/?L. The reference range was not used to interpret this result as normal/abnormal. RBC (test code = 789-8) See_Comment [Automated messa ge] The system which generated this result transmitted reference range: 4.10 - 5.10 10*6/?L. The reference range was not used to interpret this result as normal/abnormal. HGB (test code = 718-7) 13.4 g/dL 12.0-16.0 HCT (test code = 4544-3) 39.7 % 36.0-45.0 MCV (test code = 787-2) 94.5 fL 78.0-95.0 MCH (test code = 785-6) 31.9 pg 26.0-32.0 MCHC (test code = 786-4) 33.8 g/dL 32.0-36.0 RDW-SD (test code = 46434-0) 46.1 fL 38.5-49.0 RDW-CV (test code = 788-0) 13.2 % 11.5-14.0 PLT (test code = 777-3) See_Comment [Automated messa ge] The system which generated this result transmitted reference range: 135 - 361 10*3/?L. The reference range was not used to interpret this result as normal/abnormal. MPV (test code = 57613-2) 10.2 fL 9.4-13.3 NRBC/100 WBC (test code = 9197597929) See_Comment [Automated me ssage] The system which generated this result transmitted reference range: 0.0 - 10.0 /100 WBCs. The reference range was not used to interpret this result as normal/abnormal. NRBC x10^3 (test code = 0073021868) <0.01 See_Comment [Automated me ssage] The system which generated this result transmitted reference range: 10*3/?L. The reference range was not used to interpret this result as normal/abnormal. GRAN MAT (NEUT) % (test code = 770-8) 66.6 % IMM GRAN % (test code = 1232140786) 0.50 % LYMPH % (test code = 736-9) 25.2 % MONO % (test code = 5905-5) 6.3 % EOS % (test code = 713-8) 1.1 % BASO % (test code = 706-2) 0.3 % GRAN MAT x10^3(ANC) (test code = 1366742211) 4.09 10*3/uL 1.50-10.30 IMM GRAN x10^3 (test code = 9063798534) 0.03 10*3/uL 0.00-0.06 LYMPH x10^3 (test code = 731-0) 1.55 10*3/uL 0.70-7.40 MONO x10^3 (test code = 742-7) 0.39 10*3/uL 0.00-0.50 EOS x10^3 (test code = 711-2) 0.07 10*3/uL 0.00-0.40 BASO x10^3 (test code = 704-7) <0.03 0.00-0.10 [facility] Notes Date/Time Note Provider Source 2024-03-18 10:45:00 Addended by: MINNIE MONTERROSO CNM on: 03/18/2024 01:35 PM Modules accepted: Orders [facility] 2024-02-20 16:30:17 Copied from [facility] #[id number]. Topic: Clinical - Medical Advice >> February 20, 2024 4:28 PM Patient Maori Physiotherapist wrote: Ruby Hassan is a 18 year old female calling requesting referral for US. Please contact at [phone] (home) Janna Fall [facility] 2024-01-25 07:45:00 Images from the original note were not included. Venipuncture collection performed by clean technique on the both anticubitus. Total of 5 attempts were made. Slight pressure and a bandage/dressing were applied to the site(s). The patient experienced no complications. The following specimens were processed according to instructions and sent to [facility] laboratories per lab order on 01/25/2024: LT BLUE SST 4 RED LAV PPT DK GREEN (LiHep) DK GREEN (SodH) [place] DK BLUE (K2) DK BLUE (S) ACD Blood Culture NIPT/NTD [facility] 2024-01-23 10:05:17 Pt informed of results and need for 3 hr gtt, lab appt made for 01/24, informed to be fasting, verbalized understanding. [facility] 2024-01-23 09:40:49 Ruby Hassan is a 18 year old female Patient is calling back requesting to speak with clinic nurse to see if 1hr GTT was failed. Please contact when available Patient is scheduled for 3hr GTT 4/8 9am [facility] Patricia Valentin [facility] 2024-01-23 09:32:55 Attempted to call patient, no answer, left vm. [facility] 2024-01-23 09:20:40 Please call patient and set up 3 hour GTT. [facility]
--- NOTE | 2024-07-29 22:56 | RAD REPORT ---
EXAMINATION: US OB Limited COMPARISON: None. HISTORY: [facility] MAIN decreased movement Bed: TECHNIQUE: Real-time ultrasound was performed through the pelvis. A transabdominal approach was perfo rmed. FINDINGS: There is a single living intrauterine . Placenta is forming near the fundus. heart rate: 158 BPM. Maternal ovaries were not visualized. Amniotic fluid index within normal, 9.5 cm. Cervical canal appears closed, measuring 4.4 cm in length Measurements and Calculations: Femur length 57.8 millimeter, consistent with a sonographic age of 30 weeks, 2 days. The patient's LM P dates are not stated. IMPRESSION: Single living intrauterine , with a composite sonographic age of 30 weeks, 2 days. Normal amniotic fluid index.
--- NOTE | 2024-07-29 23:06 | ER ---
Nurse's Notes [facility] Name: Ruby Hassan Age: 19 yrs Sex: Female : 2005 Arrival Date: 07/29/2024 Time: 21:18 Bed 1 Private MD: Diagnosis: Person with feared health complaint in whom no diagnosis is made Presentation: 07/29 21:38 Chief complaint: Patient states: decreased movement since this morning. denies lg3 pain/bleeding. Coronavirus screen: Client denies travel out of the [place] in the last 14 days. At this time, the client does not indicate any symptoms associated with coronavirus-19. Ebola Screen: No symptoms or risks identified at this time. Initial Sepsis Screen: Does the patient meet any 2 criteria? No. Patient's initial sepsis screen is negative. Does the patient have a suspected source of infection? No. Patient's initial sepsis screen is negative. Risk Assessment: Do you want to hurt yourself or someone else? Patient reports no desire to harm self or others. Onset of symptoms was July 29, 2024. 21:38 Method Of Arrival: Ambulatory lg3 21:38 Acuity: NESTOR 3 lg3 Triage Assessment: 21:40 General: Appears in no apparent distress. comfortable, Behavior is calm, cooperative, lg3 Smells of marajuana. Pain: Denies pain. EENT: No deficits noted. No signs and/or symptoms were reported regarding the EENT system. Neuro: No deficits noted. Peralta Agitation-Sedation Scale (RASS): 0 - Alert and Calm Level of Consciousness is awake, alert, obeys commands, Oriented to person, place, time, situation. Cardiovascular: No deficits noted. Denies chest pain, shortness of breath, Capillary refill < 3 seconds Clubbing of nail beds is absent JVD is absent Patient's skin is warm and dry. Respiratory: No deficits noted. Airway is patent Respiratory effort is even, unlabored, Respiratory pattern is regular, symmetrical. GI: No deficits noted. Abdomen is round non-distended. : No deficits noted. No signs and/or symptoms were reported regarding the genitourinary system. Derm: No deficits noted. No signs and/or symptoms reported regarding the dermatologic system. Skin is intact, is healthy with good turgor, Skin is dry, Skin is normal, Skin temperature is warm. Musculoskeletal: No deficits noted. No signs and/or symptoms reported regarding the musculoskeletal system. 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 - Infectious Disease History:: Denies. - Social history:: Smoking status: Patient denies any tobacco usage or history of. Patient/guardian denies using alcohol, street drugs. Screenin:42 [facility] ED Fall Risk Assessment (Adult) History of falling in the last 3 months, lg3 including since admission No falls in past 3 months (0 pts) Confusion or Disorientation No (0 pts) Intoxicated or Sedated No (0 pts) Impaired Gait No (0 pts) Mobility Assist Device Used No (0 pt) Altered Elimination No (0 pt) Score/Fall Risk Level 0 - 2 = Low Risk Oriented to surroundings, Maintained a safe environment, Educated pt \T\ family on fall prevention, incl call for assistance when getting out of bed, Assessed \T\ reinforced patient's understanding of fall precautions, Provided non-skid footwear. Abuse screen: Denies threats or abuse. Denies injuries from another. Nutritional screening: No deficits noted. Tuberculosis screening: No symptoms or risk factors identified. Assessment: 21:42 General: see triage assessment. lg3 07/30 00:07 Reassessment: Patient appears in no apparent distress at this time. No changes from lg3 previously documented assessment. Patient and/or family updated on plan of care and expected duration. Pain level reassessed. Patient is alert, oriented x 3, equal unlabored respirations, skin warm/dry/pink. Vital Signs: 07/29 21:38 BP 136 / 81; Pulse 94; Resp 17 S; Temp 97.6(O); Pulse Ox 100% on R/A; Weight 97.52 kg lg3 (R); Height 5 ft. 3 in. (R); Pain 0/10; 07/30 00:07 BP 131 / 84; Pulse 87; Resp 17 S; Pulse Ox 99% on R/A; Pain 0/10; lg3 07/29 21:38 Body Mass Index 38.09 (97.52 kg, 160.02 cm) lg3 07/29 21:38 Pain Scale: Adult lg3 07/30 00:07 Pain Scale: Adult lg3 ED Course: 07/29 21:20 Patient arrived in ED. im 21:20 Lizy Jaquez FNP-C [facility] kb 21:20 Sedrick Chirinos MD is Attending Physician. kb 21:38 Frida Burt, RN is Primary Nurse. lg3 21:40 Triage completed. lg3 21:40 Arm band placed on right wrist. lg3 21:42 Patient has correct armband on for positive identification. Placed in gown. Bed in low lg3 position. Call light in reach. Side rails up X 1. Client placed on continuous cardiac and pulse oximetry monitoring. NIBP monitoring applied. Door closed. Noise minimized. Warm blanket given. Pillow given. Family accompanied patient. 21:57 US OB Limited In Process Unspecified. EDMS 07/30 00:08 No provider procedures requiring assistance completed. Patient did not have IV access lg3 during this emergency room visit. Administered Medications: No medications were administered Medication: 07/29 21:42 VIS not applicable for this client. lg3 Outcome: 23:05 Discharge ordered by . kb 07/30 00:08 Discharged to home ambulatory, lg3 Condition: stable Discharge instructions given to patient, Instructed on discharge instructions, follow up and referral plans. Demonstrated understanding of instructions, follow-up care, 00:08 Patient left the ED. lg3 Signatures: Dispatcher [employer] EDMS Lizy Jaquez FNP-C FNP-Ckb Able, Lacie, RN RN lg3 Meagan Brown im
--- NOTE | 2024-07-29 23:06 | EDPHYS ---
Physician Documentation [facility] Name: Ruby Hassan Age: 19 yrs Sex: Female : 2005 Arrival Date: 07/29/2024 Time: 21:18 Bed 1 Private MD: ED Physician Sedrick Chirinos HPI: 07/29 22:39 This 19 yrs old Female presents to ER via Ambulatory with complaints of 32 kb weeks , baby not moving as much. 22:39 Pt is a 19 year old female who presents for decreased movement that started this kb morning. States she has been feeling the baby move, but not as much as normal. Denies abd pain, vaginal bleeding. Pt states she is 32 weeks . 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 - Infectious Disease History:: Denies. - Social history:: Smoking status: Patient denies any tobacco usage or history of. Patient/guardian denies using alcohol, street drugs. ROS: 22:38 Constitutional: As per HPI kb Exam: 22:38 Constitutional: This is a well developed, well nourished patient who is awake, alert, kb and in no acute distress. Head/Face: Normocephalic, atraumatic. ENT: Moist Mucous membranes Cardiovascular: Regular rate Respiratory: Respirations even and unlabored. No increased work of breathing. Talking in full sentences Abdomen/GI: Soft, non-tender. No distention Skin: Warm, dry with normal turgor. Normal color. MS/ Extremity: Pulses equal, no cyanosis. Neurovascular intact. Full, normal range of motion. Neuro: Awake and alert, GCS 15, oriented to person, place, time, and situation. Moves all extremities. Normal gait. Vital Signs: 21:38 BP 136 / 81; Pulse 94; Resp 17 S; Temp 97.6(O); Pulse Ox 100% on R/A; Weight 97.52 kg lg3 (R); Height 5 ft. 3 in. (R); Pain 0/10; 07/30 00:07 BP 131 / 84; Pulse 87; Resp 17 S; Pulse Ox 99% on R/A; Pain 0/10; lg3 07/29 21:38 Body Mass Index 38.09 (97.52 kg, 160.02 cm) lg3 07/29 21:38 Pain Scale: Adult lg3 07/30 00:07 Pain Scale: Adult lg3 MDM: 07/29 21:20 Patient medically screened. kb 22:38 Differential diagnosis: demise, 32 weeks . Data reviewed: vital signs, kb nurses notes. 23:04 Counseling: I had a detailed discussion with the patient and/or guardian regarding the kb historical points, exam findings, and any diagnostic results supporting the discharge/admit diagnosis, radiology results, the need for outpatient follow up, an OB/Gyne specialist, to return to the emergency department if symptoms worsen or persist or if there are any questions or concerns that arise at home. 07/29 21:21 Order name: OB Limited; Complete Time: 23:04 kb Administered Medications: No medications were administered Disposition: 07/30 00:31 Co-signature as Attending Physician, Sedrick Chirinos MD I reviewed the patient's care rt provided by the Advanced Practice Provider and agree with the diagnosis and treatment plan. Disposition Summary: 07/29/24 23:05 Discharge Ordered Notes: Location: Home kb Condition: Stable kb Diagnosis - Person with feared health complaint in whom no diagnosis is made kb Followup: kb - With: Emergency Department - When: As needed - Reason: Worsening of condition Followup: kb - With: Private Physician - When: 2 - 3 days - Reason: Recheck today's complaints, Continuance of care, Re-evaluation by your physician Discharge Instructions: - Discharge Summary Sheet kb - Third Trimester of , [id number] kb Forms: - Medication Reconciliation Form kb - Antibiotic Education kb - Prescription Opioid Use kb - Patient Portal Instructions kb - Leadership Thank You Letter kb Signatures: Dispatcher [employer] Lizy Ward FNP-C FNP-Frida Wylie, RN RN lg3 Sedrick Chirinos MD MD rt
[2024-07-30 00:22] VITALS: TEMP 97.6
[2024-07-30 00:24] VITALS: BP 131/84; O2SAT 99
== END 2024-07-30 00:08 | disposition home or self-care (01) ==
LOC: ER 21:18
DX: Z71.1 Person with feared health complaint in whom no diagnosis is made (principal); Z3A.32 32 weeks gestation of pregnancy
CPT/HCPCS: 76815; 99283